=== PATIENT | female | born 1945 | race Two or more races ===

== ENCOUNTER 2018-01-02 10:58 | Outpatient (CLI) | payer OTHER ==
[~2018-01-02 10:58] MED LIST: ALTOPREV20 MG; COZAAR100 MG; FLAGYL PO; LEVAQUIN750 MG PO; LEVSIN/SL0.125 MG SL; METOPROLOL SUC200 MG; METOPROLOL SUCC50 MG
== END 2018-01-02 11:18 | disposition home or self-care (01) ==
LOC: RX STUDY 10:58
DX: N39.41 Urge incontinence (principal)
CPT/HCPCS: 51600; 74430; Q9958

== ENCOUNTER 2021-05-25 08:05 | Outpatient (CLI) | payer OTHER | END 2021-05-25 08:15 | disposition home or self-care (01) | LOC: RX STUDY 08:05 | PROVIDERS: ATTEND Internal Medicine | DX: R13.10 Dysphagia, unspecified (principal) ==